=== PATIENT | female | born 1985 | race African-American/Black ===

== ENCOUNTER 2016-10-09 15:24 | Emergency (ER) | payer OTHER ==
[~2016-10-09 15:24] MED LIST: ALBU8I INH; CALNTAB
--- NOTE | 2016-10-09 16:23 | PD ---
HPI Chief Complaint Pressure Date Seen: Oct 09, 2016 Time Seen: 16:14 Travel History International Travel<30 Days: No Contact w/Intl Traveler<30Days: No Known Affected Area: No History of Present Illness HPI 31-year-old primigravida at 36 weeks gestation with a twin gestation who has been experiencing steady pelvic pressure for several days. She denies any intermittent abdominal pain or tightening. She denies any bleeding, leakage of fluid, discharge or decreased movement. Para: 0 : 1 History Past Medical History Narrative Medical Mild asthma for which she uses albuterol on as needed basis Obstetric History Obstetric History Primigravida with twin gestation Past Surgical History Narrative Surgical Laparoscopic surgery for bowel obstruction at age 29 Family History Family History: Negative Social History Alcohol Use: No Tobacco Use: No Substance Abuse: No Allergies-Medications (Allergen,Severity, Reaction): Coded Allergies: No Known Allergies (Verified , 09/21/16) Home Meds Reported Medications Vitamin (Calna)1 Tab Tab 09/21/16 Albuterol Sulfate 8 GM Inhaler (Ventolin Hfa)8 Gm Aero2 Puff INH Q4 #1 BOX * SHAKE WELL BEFORE USE * 01/15/15 Review of Systems Except as stated in HPI: all other systems reviewed are Neg Physical Exam Narrative GENERAL: Well-nourished, well-developed patient. SKIN: Warm and dry. HEAD: Normocephalic and atraumatic. EYES: No scleral icterus. No injection or drainage. ENT: No nasal drainage noted. Mucous membranes pink. Airway patent. NECK: Supple, trachea midline. No JVD. CARDIOVASCULAR: Regular rate and rhythm without murmurs, gallops, or rubs. RESPIRATORY: Breath sounds equal bilaterally. No accessory muscle use. ABDOMEN/GI: Abdomen soft, non-tender, bowel sounds present, no rebound, no guarding Gravid to [-] weeks size Fundal Height: [-39] GENITOURINARY: External Genitalia: intact and normal in appearance BUS glands: [-] Cervix: [Fingertip-] Dilatation: [-] Effacement: [-80] Station: [--1] Presentation: [Vertex-] Membranes: [intact ] Uterine Contractions: [Rare-] FHT's: Category: [1 for both babies-] Baseline: [-] Reactive: [-] Variability: [-] Decels: [-] EXTREMITIES: No cyanosis or edema. BACK: Nontender without obvious deformity. No CVA tenderness. NEUROLOGICAL: Awake and alert. Motor and sensory grossly within normal limits. Five out of 5 muscle strength in all muscle groups. Normal speech. Data Data Vital Signs Reviewed: Yes MDM Medical Record Reviewed: Yes Narrative Course / MDM Primigravida at 36+ week gestation with twins, rule out labor Plan: Due to very minimal contraction activity, no cervical change since her examination in labor and delivery 2 weeks ago, and category 1 heart rate tracings for both babies she'll be discharged home with labor precautions. Diagnosis Diagnosis: Primary Impression: Twin gestation in third trimester Additional Impression: Irregular contractions Disposition: 01 DISCHARGE HOME Bautista Mota MD Oct 09, 2016 16:23
== END 2016-10-09 16:53 | disposition home or self-care (01) ==
LOC: HOBED 15:24
DX: O47.03 False labor before 37 completed weeks of gestation, third trimester (principal); O30.003 Twin pregnancy, unspecified number of placenta and unspecified number of amniotic sacs, third trimester; Z3A.36 36 weeks gestation of pregnancy
CPT/HCPCS: 59025

== ENCOUNTER 2016-10-24 08:09 | Inpatient (IN) | payer OTHER ==
[2016-10-24] VITALS (39 sets, daily range): BP systolic 96–153; BP diastolic 58–95; PULSE 68–101; RESP 16–18; TEMP 95.2–97.7; O2SAT 97
[~2016-10-24] VITALS: Ht 170.2 cm; Wt 70.3 kg
[2016-10-24] MEDS ORDERED: OXYTOCIN 30 UNITS 500ML PREMIX IV ONE (09:15)
[2016-10-24] MEDS ORDERED: LIDOCAINE HCL 1% 50 ML VIAL INFIL PRN (09:15)
[2016-10-24] MEDS ORDERED: MINERAL OIL 10 ML VIAL TOP PRN (09:15)
[2016-10-24] MEDS ORDERED: CITRIC ACID-SODIUM CITRATE LIQ 30 ML UDC PO SCH (09:30)
[2016-10-24] MEDS ORDERED: ONDANSETRON HCL 4 MG/2 ML VIAL IV PRN (09:30)
[2016-10-24] MEDS ORDERED: OXYTOCIN 30 UNITS/NS 500ML PREMIX IV SCH (09:30)
[2016-10-24] MEDS ORDERED: NS 1000 ML IV PRN (09:30)
[2016-10-24] MEDS ORDERED: LACTATED RINGER'S 1000 ML BOLUS IV PRN (09:30)
[2016-10-24] MEDS ORDERED: NS 500 ML BOLUS IV PRN (09:30)
[2016-10-24] MEDS ORDERED: LIDOCAINE HCL 1% 50 ML VIAL I-DERMAL PRN (09:30)
[2016-10-24 09:35] LABS: BACTERIA, URINE MOD /hpf; BLOOD, URINE NEG (NEG); COMMENT (UR) CULTURE INDICATED; CULTURE IF INDICATED CULTURE INDICATED; GLUCOSE,URINE NEG (NEG); KETONE, URINE NEG (NEG); MUCUS URINE FEW /lpf (OCC); NITRITE,URINE NEG (NEG); PH, URINE 6.5 (5.0-8.5); SQUAMOUS EPITHELIAL CELL URINE 3 /hpf (0-5); URINE COLOR YELLOW (YELLW/STRAW)
[2016-10-24 09:37] LABS: AUTOMATED NEUTROPHIL # 5.7 TH/MM3 (1.8-7.7); BASOPHIL % 0.3 % (0.0-2.0); EOSINOPHIL % 0.3 % (0.0-4.0); HEMATOCRIT 33.8 % (35.0-46.0); HEMO FLAGS DIFF FINAL; LYMPH % 22.1 % (9.0-44.0); LYMPHOCYTE # 1.8 TH/MM3 (1.0-4.8); MEAN CELL VOLUME 79.8 FL (80.0-100.0); MEAN CORPUSCULAR HEMOGLOBIN 26.3 PG (27.0-34.0); MEAN CORPUSCULAR HGB CONC 32.9 % (32.0-36.0); MONO % 6.2 % (0.0-8.0); NEUT % 71.1 % (16.0-70.0); PLATELET COUNT 194 TH/MM3 (150-450); RED BLOOD COUNT 4.23 MIL/MM3 (4.00-5.30); RED CELL DISTRIBUTION WIDTH 16.4 % (11.6-17.2); WHITE BLOOD COUNT 7.9 TH/MM3 (4.0-11.0)
[2016-10-24] MEDS: LACTATED RINGER'S 1000 ML IV SCH (09:47)
[2016-10-24] MEDS ORDERED: fentaNYL 2MCG-BUPIV 0.125% INJ 100 ML ONE (10:44)
[2016-10-24] MEDS ORDERED: ACETAMINOPHEN 325 MG TAB PO ONE (14:15)
[2016-10-24] MEDS ORDERED: ePHEDrine/NS 50 MG/5 ML SYR IV PRN (14:45)
[2016-10-24] MEDS ORDERED: fentaNYL 2MCG-BUPIV 0.125% INJ 100 ML EPIDURAL SCH (14:45)
[2016-10-24] MEDS ORDERED: DO NOT ADMINISTER ANTICOAGULANTS XX PRN (14:45)
[2016-10-24] MEDS ORDERED: NO SYSTEM NARCOTICS XX PRN (14:45)
[2016-10-24] MEDS ORDERED: MEASLES, MUMPS, RUBELLA VACCINE 0.5 ML VIAL SQ ONE (16:00)
[2016-10-24] MEDS ORDERED: DIPHTH/TETANUS/ACEL PERTUSSIS (BOOSTER) 0.5 ML VIAL/PFS IM ONE (16:00)
[2016-10-24] MEDS ORDERED: ceFAZolin INJ 1,000 MG VIAL ONE (16:43)
[2016-10-24] MEDS ORDERED: OXYTOCIN 10 UNIT/ML AMP ONE (16:43)
[2016-10-24] MEDS ORDERED: ALUMINUM/MAGNESIUM/SIMETH 30 ML CUP PO PRN (18:15)
[2016-10-24] MEDS ORDERED: DOCUSATE SODIUM 50 MG/SENNA 8.6 MG TAB PO PRN (18:15)
[2016-10-24] MEDS ORDERED: OXYTOCIN 10 UNIT/ML AMP XX PRN (18:15)
[2016-10-24] MEDS ORDERED: OXYTOCIN 30 UNITS-500ML PREMIX 500 ML IV ONE (18:15)
[2016-10-24] MEDS ORDERED: oxyCODONE/ACETAMINOPHEN 5 MG/325 MG TAB PO PRN ×2 (18:15)
[2016-10-24] MEDS ORDERED: WITCH HAZEL 50%/GLYCERIN 12.5% 40 PAD JAR TOPICAL PRN (18:15)
[2016-10-24] MEDS ORDERED: BENZOCAINE 20% TOPICAL SPRAY 60 ML CAN TOPICAL PRN (18:15)
[2016-10-24] MEDS ORDERED: ACETAMINOPHEN 325 MG TAB PO PRN (18:15)
[2016-10-24] MEDS ORDERED: SODIUM CHLORIDE 0.9% FLUSH 5 ML FLUSH IV PRN (18:15)
[2016-10-24] MEDS ORDERED: ZOLPIDEM TARTRATE 5 MG TAB PO PRN (18:15)
[2016-10-24] MEDS ORDERED: ONDANSETRON ODT 4 MG TAB PO PRN (18:15)
--- NOTE | 2016-10-24 18:18 | PD.OB.DELI ---
Delivery Date: Oct 24, 2016 Anesthesia: Epidural Episiotomy: None Vaginal Delivery: Normal Presentation: Occiput anterior Nuchal Cord: None : Male, Multiple One Minute : 8 Five Minute : 9 Weight: 6-6;7-11 Infant Care: Suctioned, Spontaneous crying Placenta: Spontaneous delivery, Intact, 3 vessel cord Repair: Chromic running (right periurethral repaired with 3-0 chromic) Swapnil Phelan MD Oct 24, 2016 18:18
[2016-10-24] MEDS ORDERED: AMMONIA AROMATIC INHALANT 0.33 ML ONE (20:13)
[2016-10-24] MEDS: SODIUM CHLORIDE 0.9% FLUSH 5 ML FLUSH IV SCH (21:00)
[2016-10-25] MEDS: IBUPROFEN 600 MG TAB PO PRN (01:37)
[2016-10-25] MEDS: SODIUM CHLORIDE 0.9% FLUSH 5 ML FLUSH IV SCH (07:42)
[2016-10-25] MEDS: LACTATED RINGER'S 1000 ML IV SCH ×2 (09:30→14:44)
--- NOTE | 2016-10-25 14:12 | HHI.OB ---
Subjective Post Day: 1 Remarks pain controlled, mod lochia, ezra po, +void/flatus Objective Vitals/I&O Vital Signs Date Time Temp Pulse Resp B/P Pulse Ox O2 Delivery O2 Flow Rate FiO2 10/24/16 20:26 99/58 10/24/16 20:26 97.5 95 16 97 10/24/16 19:34 18 10/24/16 19:23 68 147/86 10/24/16 19:15 88 132/78 10/24/16 19:05 18 10/24/16 19:01 96 10/24/16 18:58 121/75 10/24/16 18:44 75 101/68 10/24/16 18:42 18 10/24/16 18:25 83 153/94 10/24/16 18:24 18 10/24/16 16:01 86 130/81 10/24/16 15:41 95.8 18 10/24/16 15:30 78 116/75 10/24/16 15:03 95.2 10/24/16 15:00 78 135/95 10/24/16 14:42 18 10/24/16 14:30 70 117/70 Objective Remarks GENERAL: Well-nourished, well-developed patient. CARDIOVASCULAR: Regular rate and rhythm without murmurs, gallops, or rubs. RESPIRATORY: Breath sounds equal bilaterally. No accessory muscle use. ABDOMEN/GI: Abdomen soft, non-tender. Fundus: Firm, non-tender at umbilicus. GENITOURINARY: Light to moderate bleeding. EXTREMITIES: No cyanosis or edema, non-tender, without signs of DVT. Medications and IVs Current Medications Medications (Trade) Dose Ordered Sig/Wayne Route Start Time Stop Time Status Last Admin Lactated Ringer's 1,000 ml @ 125 mls/hr Q8H IV 10/24/16 09:30 10/24/16 09:47 Lactated Ringer's 1,000 ml @ 3,000 mls/hr BOLUS PRN IV 10/24/16 09:30 10/24/16 09:47 Sodium Chloride 500 ml @ 1,000 mls/hr BOLUS PRN IV 10/24/16 09:30 (NS 1000 ml Inj) 1,000 ml @ 100 mls/hr Q10H PRN IV 10/24/16 09:30 (Zofran Inj) 4 mg Q6H PRN IV 10/24/16 09:30 10/24/16 20:52 (fentaNYL INJ) 50 mcg Q1H PRN IV PUSH 10/24/16 09:15 (fentaNYL INJ) 100 mcg Q1H PRN IV PUSH 10/24/16 09:15 Mineral Oil 10 ml 10 ml UNSCH PRN TOP 10/24/16 09:15 (Pitocin 30 Units-NS 500 ml Premix) 500 ml @ 0 mls/hr TITRATE IV 10/24/16 09:30 10/24/16 09:49 Miscellaneous Information No systemic narcotics to be given except... UNSCH PRN XX 10/24/16 14:45 10/25/16 14:44 Miscellaneous Information DO NOT ADMINISTER ANY ANTICOAGUL... UNSCH PRN XX 10/24/16 14:45 10/25/16 14:44 (fentaNYL 2MCG-BUPIV 0.125% INJ) 100 ml @ 0 mls/hr TITRATE EPIDURAL 10/24/16 14:45 (ePHEDrine/NS 50 MG/5 ML SYR) 10 mg UNSCH PRN IV 10/24/16 14:45 10/25/16 14:44 (NS Flush) 2 ml BID IV 10/24/16 21:00 10/24/16 21:00 (NS Flush) 2 ml UNSCH PRN IV 10/24/16 18:15 (Tylenol) 650 mg Q4H PRN PO 10/24/16 18:15 (Motrin) 600 mg Q6H PRN PO 10/24/16 18:15 10/25/16 01:37 (Percocet 5-325 Mg) 1 tab Q4H PRN PO 10/24/16 18:15 (Percocet 5-325 Mg) 2 tab Q4H PRN PO 10/24/16 18:15 (Americaine 20% Top Spr) 1 spray Q4H PRN TOPICAL 10/24/16 18:15 (Tucks Pads) 1 applic QID PRN TOPICAL 10/24/16 18:15 (Amy-Colace) 2 tab Q12H PRN PO 10/24/16 18:15 (Ambien) 5 mg HS PRN PO 10/24/16 18:15 (Mag-Al Plus Susp Liq) 15 ml Q8H PRN PO 10/24/16 18:15 (Zofran Odt) 4 mg Q6H PRN PO 10/24/16 18:15 (Flu (Quadrivalent) Vaccine Inj) 0.5 ml ONCE ONCE IM 10/26/16 10:00 10/26/16 10:01 Assessment/Plan Problem List: (1) Twin gestation in third trimester (2) Spontaneous vaginal delivery Plan: routine pp care Swapnil Phelan MD Oct 25, 2016 14:12
[2016-10-25 19:29] VITALS: BP 105/69; PULSE 93; RESP 16; TEMP 98.6
[2016-10-26] MEDS: IBUPROFEN 600 MG TAB PO PRN (03:52)
[2016-10-26 08:00] VITALS: BP 121/70; PULSE 88; RESP 18; TEMP 97.9
[2016-10-26] MEDS ORDERED: INFLUENZA VIRUS VACCINE (QUADRIVALENT) 0.5 ML SYR IM ONE (10:00)
== END 2016-10-26 15:47 | disposition home or self-care (01) | DRG 775 ==
LOC: H2EB 08:09 → H1EA 20:02
PROVIDERS: ADMIT Obstetrics & Gynecology; ATTEND Obstetrics & Gynecology
PROC: 10E0XZZ Delivery of Products of Conception, External Approach (ICD-10-PCS; principal; 2016-10-24)
PROC: 0UQMXZZ Repair Vulva, External Approach (ICD-10-PCS; 2016-10-24)
PROC: 3E033VJ Introduction of Other Hormone into Peripheral Vein, Percutaneous Approach (ICD-10-PCS; 2016-10-24)
PROC: 3E0S3CZ (ICD-10-PCS; 2016-10-24)
PROC: 00HU33Z Insertion of Infusion Device into Spinal Canal, Percutaneous Approach (ICD-10-PCS; 2016-10-24)
DX: O30.003 Twin pregnancy, unspecified number of placenta and unspecified number of amniotic sacs, third trimester (principal); O71.82 Other specified trauma to perineum and vulva; Z37.2 Twins, both liveborn; Z3A.39 39 weeks gestation of pregnancy; Z23 Encounter for immunization
CPT/HCPCS: 59025; 76815; 81001; 85025; 86900; 86901; 87086; 90686; 90715; J0690; J2405; J2590; J7120; Q2038